=== PATIENT | male | born 1995 | race Caucasian/White ===

== ENCOUNTER → 2017-12-30 | Outpatient (CLI) | payer BC | LOC: MC.RAD 12:58 | DX: R59.0 Localized enlarged lymph nodes (principal) ==

== ENCOUNTER → 2019-02-18 | Outpatient (CLI) | payer BC, OTHER | LOC: COL.RAD 09:25 | DX: M25.512 Pain in left shoulder (principal) | CPT/HCPCS: A9585; Q9967 ==

== ENCOUNTER → 2019-02-25 | Outpatient (CLI) | payer OTHER, BC | LOC: COL.RAD 07:58 | DX: S76.219A Strain of adductor muscle, fascia and tendon of unspecified thigh, initial encounter (principal) | CPT/HCPCS: J3301; Q9967 ==